=== PATIENT | female | born 1935 | race Caucasian/White ===

== ENCOUNTER 2019-04-03 20:12 | Emergency (ER) | payer OTHER, BC ==
[~2019-04-03] VITALS: Ht 157.5 cm; Wt 88.5 kg
[2019-04-03 21:20] LABS: HEMATOCRIT 40.1 % (37.0-47.0); HEMOGLOBIN 13.8 gm/dL (12.0-15.0); MCH 34.2 pg (26.0-34.0); MCHC 34.5 g/dL (28.0-37.0); MCV 99.3 fL (80.0-100.0); PLATELET COUNT 144 thou/uL (150-400); RBC 4.04 mil/uL (4.20-5.00); RDW 13.1 % (10.5-14.5); WBC 5.7 thou/uL (4.0-11.0)
[2019-04-03 21:27] LABS: ANION GAP 7 mmol/L (7-16); BUN 19 mg/dL (7-18); CALCIUM 8.9 mg/dL (8.5-10.1); CHLORIDE 105 mmol/L (98-107); CO2 28 mmol/L (21-32); CREATININE 1.4 mg/dL (0.6-1.0); GLUCOSE 168 mg/dL (74-106); POTASSIUM 3.6 mmol/L (3.5-5.1); SODIUM 140 mmol/L (136-145)
[2019-04-03 21:37] LABS: TROPONIN-I <0.06 ng/mL (<0.06)
[2019-04-03 21:50] LABS: ABSOLUTE NEUTROPHILS 3.1 thou/uL (1.4-8.2); ANISOCYTOSIS 2+
[2019-04-03 22:08] LABS: URINE BILIRUBIN NEGATIVE (Negative); URINE BLOOD NEGATIVE (Negative); URINE CLARITY CLEAR; URINE COLOR YELLOW; URINE GLUCOSE-RANDOM* NEGATIVE (Negative); URINE KETONES NEGATIVE (Negative); URINE LEUKOCYTES-REFLEX TRACE (Negative); URINE NITRITE-REFLEX NEGATIVE (Negative); URINE PROTEIN (DIPSTICK) NEGATIVE (Negative); URINE SPECIFIC GRAVITY 1.025 (1.005-1.035); URINE UROBILINOGEN 0.2 E.U./dl (0.2-1.0)
[2019-04-03 22:45] VITALS: BP 145/65
--- NOTE | 2019-04-07 17:52 | EKG ---
[place] [address] [facility] [employer] [address] ELECTROCARDIOGRAM REPORT Name: TOYA SMITH [id number] ������������������ Admission: 04/03/19 ������������������ Attend Phys: Discharge: 04/03/19 ������������������ Date of : 37 Report #: [id number] ����������������������������������������������������������������� [id number] THIS REPORT FOR: //name// [facility] ED Test Date: 2019-04-03 Test Time: 20:23:56 Pat Name: TOYA SMITH Department: Room: Gender: F [employer]: : 1935 Requested By: Ki Landaverde Order Number: [id number] MD: Neo Chase Measurements Intervals [place] Rate: 64 P: 17 UT: 159 QRS: 8 QRSD: 94 T: 1 QT: 405 QTc: 418 Interpretive Statements Sinus rhythm Abnormal R-wave progression, early transition Borderline T abnormalities, inferior leads No previous ECG available for comparison Electronically Signed On 04-07-2019 17:52:08 CDT by Neo Chase [email or web address] ��������������������������������������������� <ELECTRONICALLY SIGNED> ���������������������������������������� By: Neo Chase MD, [facility] ��������������������������������������������� 04/07/19 175 22 22 Neo Chase MD, FACC /EPI
== END 2019-04-03 22:45 | disposition home or self-care (01) ==
LOC: ER 20:12
PROVIDERS: Emergency Medicine
DX: R55 Syncope and collapse (principal); I10 Essential (primary) hypertension; Z88.2 Allergy status to sulfonamides; Z96.653 Presence of artificial knee joint, bilateral; Z96.643 Presence of artificial hip joint, bilateral